=== PATIENT | male | born 1975 | race Caucasian/White ===

== ENCOUNTER 2016-08-29 15:23 | Emergency (ER) | payer MEDICARE ==
[2016-08-29] MEDS ORDERED: ORPHENADRINE 60 MG/2 ML AMP ONE (17:08)
== END 2016-08-29 18:21 | disposition home or self-care (01) ==
LOC: ER 15:23
DX: S39.012A Strain of muscle, fascia and tendon of lower back, initial encounter (principal); M47.896 Other spondylosis, lumbar region
CPT/HCPCS: 72100; 96372